=== PATIENT | female | born 1970 | race African-American/Black ===

== ENCOUNTER 2018-09-01 11:07 | Emergency (ER) | payer OTHER ==
[~2018-09-01] VITALS: Ht 167.6 cm; Wt 85.7 kg
[2018-09-01 11:07] VITALS: BP 111/78
[2018-09-01] MEDS ORDERED: MEDROLDOSEPACK PO (11:48)
[2018-09-01] MEDS ORDERED: CYCLOBENZAPRINE5 MG PO (11:48)
[2018-09-01] MEDS ORDERED: NORCO 10-325 T1 EACH PO (11:48)
== END 2018-09-01 12:05 | disposition home or self-care (01) ==
LOC: ER 11:07
DX: M54.41 Lumbago with sciatica, right side (principal)